=== PATIENT | male | born 1965 | race African-American/Black ===

== ENCOUNTER 2021-11-24 07:53 | Emergency (ER) | payer BC ==
[~2021-11-24] VITALS: Ht 177.8 cm; Wt 97.5 kg
[2021-11-24 08:10] VITALS: BP_SYST 129
--- NOTE | 2021-11-24 08:26 | NUR ---
Patient to ER bed CH1 to gown for evaluation. Side rails up. Report given to TOBI CEBALLOS.
--- NOTE | 2021-11-24 08:35 | NUR ---
Pt presents to the ER bib self CC right ear pain. Pt states swelling to right side of neck afebrile, soreness of throat, difficulty swallowing. Pt is aaox4, pain scale 5/10 pain to right ear. No PMHX. NKA, Denies SOB denies NVD.
--- NOTE | 2021-11-24 09:00 | NUR ---
ER at bedside examining patient.
--- NOTE | 2021-11-24 09:23 | NUR ---
Patient given written and verbal discharge instructions and verbalizes understanding. ER MD discussed with patient the results and treatment provided. Patient in stable condition. ID arm band removed. Patient educated on pain management and to follow up with PMD. Opportunity for questions provided and answered. Medication side effect fact sheet provided.
[2021-11-24 09:29] VITALS: BP_SYST 129
== END 2021-11-24 09:23 | disposition home or self-care (01) ==
LOC: SED 07:53
DX: L04.0 Acute lymphadenitis of face, head and neck (principal); J02.9 Acute pharyngitis, unspecified; H92.01 Otalgia, right ear; I10 Essential (primary) hypertension; Z79.899 Other long term (current) drug therapy
CPT/HCPCS: 36415; 86403; 87081; 99283